=== PATIENT | female | born 1940 | race Caucasian/White ===

== ENCOUNTER 2018-04-10 22:46 | Emergency (ER) | payer OTHER ==
[~2018-04-10] VITALS: Ht 144.8 cm; Wt 51.5 kg
[~2018-04-10 22:46] MED LIST: CALCIUM 600 +1 EA15 PO; CLONAZEPAM1 MG PO; CYCLOBENZAPRINE10 MG PO; FOLIC ACID1 MG PO; GLUCOSAMINE &1 EAC1 PO; GLUCOSAMINE1000 MG PO; HYDROCODON-ACE1 EAC7 PO; IRON325 MG PO; KEFLEX500 MG PO; MELOXICAM15 MG PO; METHOTREXATE2.5 MG PO; OMEGA-3100 MG PO; PANTOPRAZOLE SO40 MG PO; POTASSIUM GLUCO2 MEQ PO; PREDNISONE5 MG PO; PROTONIX40 MG PO; RECLAST5 MG/100 M IV; TOLTERODINE TART2 MG PO; ULTRAM50 MG PO; VITAMIN A8000 UNIT PO; VITAMIN B12-FO1 EACH PO; VITAMIN B122500 MCG PO; VITAMIN D31000 UNIT PO; VITAMIN E400 UNIT PO
[2018-04-11] MEDS ORDERED: LIDOCAINE700 MG TP (03:26)
[2018-04-11 03:48] VITALS: BP 162/113
== END 2018-04-11 03:48 | disposition home or self-care (01) ==
LOC: EME 22:46
DX: M62.830 Muscle spasm of back (principal); G89.29 Other chronic pain; M54.5 Low back pain; R91.1 Solitary pulmonary nodule; K44.9 Diaphragmatic hernia without obstruction or gangrene; N28.1 Cyst of kidney, acquired; K57.30 Diverticulosis of large intestine without perforation or abscess without bleeding; Z79.52 Long term (current) use of systemic steroids
CPT/HCPCS: 71046; 74176; 99281; 99285; J3010